=== PATIENT | male | born 2000 | race Caucasian/White ===

== ENCOUNTER 2022-11-15 22:11 | Emergency (ER) | payer OTHER ==
[~2022-11-15] VITALS: Ht 175.3 cm; Wt 72.7 kg
[2022-11-15 22:17] VITALS: TEMP 98.5
[2022-11-15] MEDS ORDERED: ILOTYCIN5 MG/GM OP (23:08)
[2022-11-15 23:15] VITALS: BP 121/86; PULSE 91
== END 2022-11-15 23:15 | disposition home or self-care (01) ==
LOC: COL.ER 22:11
DX: S05.91XA Unspecified injury of right eye and orbit, initial encounter (principal); Z88.1 Allergy status to other antibiotic agents; Z28.310 Unvaccinated for COVID-19; W22.8XXA Striking against or struck by other objects, initial encounter